=== PATIENT | female | born 1990 | race Caucasian/White ===

== ENCOUNTER 2016-08-02 12:14 | Emergency (ER) | payer OTHER ==
[~2016-08-02 12:14] MED LIST: ACET50TA PO; IBUP80TA PO; VITAPRTA PO
[2016-08-02 13:22] LABS: MEAN CORPUSCULAR HEMOGLOBIN 29.7 pg (27.0-33.0); MEAN CORPUSCULAR HGB CONC 33.7 g/dl (32.0-36.5); MEAN CORPUSCULAR VOLUME 88.1 fl (80.0-96.0); RED CELL DISTRIBUTION WIDTH 12.4 % (11.5-14.5); WHITE BLOOD COUNT 6.4 K/mm3 (4.0-10.0)
[2016-08-02 13:37] LABS: CONTROL LINE HCG INT CTR LINE PRESENT
[2016-08-02 13:52] LABS: ALBUMIN 3.6 GM/DL (3.2-5.2); ALBUMIN/GLOBULIN RATIO 1.03 (1.00-1.93); ALKALINE PHOSPHATASE 58 U/L (45-117); ALT/SGPT 35 U/L (12-78); ANION GAP 7 MEQ/L (8-16); AST/SGOT 32 U/L (15-37); BILIRUBIN,DIRECT 0.3 MG/DL (0.0-0.2); BILIRUBIN,TOTAL 1.6 MG/DL (0.2-1.0); BLOOD UREA NITROGEN 12 MG/DL (7-18); CALCIUM LEVEL 9.1 MG/DL (8.5-10.1); CARBON DIOXIDE LEVEL 26 MEQ/L (21-32); CHLORIDE LEVEL 108 MEQ/L (98-107); CREATININE FOR GFR 0.85 MG/DL (0.55-1.02); GLOMERULAR FILTRATION RATE > 60.0 (>60); GLUCOSE, FASTING 98 MG/DL (70-105); POTASSIUM SERUM 5.1 MEQ/L (3.5-5.1); SODIUM LEVEL 141 MEQ/L (136-145); TOTAL PROTEIN 7.1 GM/DL (6.4-8.2)
[2016-08-02] MEDS ORDERED: ACETAMINOPHEN 325 MG TAB As Ordered ONE (13:58)
[2016-08-02] MEDS ORDERED: ONDANSETRON 4MG/2ML VIAL (J2405) As Ordered ONE (14:30)
[2016-08-02 14:58] LABS: AMPHETAMINES LEVEL URINE NEGATIVE (NEGATIVE); BENZODIAZEPINES URINE NEGATIVE (NEGATIVE); COCAINE METABOLITE URINE NEGATIVE (NEGATIVE); CONTROL LINE INT CTR LINE PRESENT; METHADONE URINE NEGATIVE (NEGATIVE); OPIATES URINE NEGATIVE (NEGATIVE); TRICYCLIC ANTIDEPRESS URINE NEGATIVE (NEGATIVE)
--- NOTE | 2016-08-02 15:41 | EDDOCDS ---
Physician Documentation [facility] Name: Michelle Adamson Age: 25 yrs Sex: Female : 1990 Arrival Date: 08/02/2016 Time: 12:14 Bed 13 Private MD: Disposition: 08/02/16 15:08 Discharged to Home/Self Care. Impression: Concussion, Postconcussional syndrome. - Condition is Stable. - Discharge Instructions: General Headache Without Cause, Post-Concussion Syndrome. - Prescriptions for ZOFRAN ODT 4 mg - dissolve 1 tablet by ORAL route 4 times per day As needed do not chew, do not swallow whole; 10 tablet. - Medication Reconciliation, Local Pharmacy Hours form. - Follow up: Natasha Shen MD; When: 2 - 3 days. - Problem is new. - Symptoms have improved. - Notes: no sports x 4 wks. return if worsening symptoms. Historical: - Allergies: No known drug Allergies; - Home Meds: 1. levothyroxine 25 mcg oral tab once daily - PMHx: Hypothyroidism; - Social history: Smoking status: Patient states was never smoker of tobacco. No barriers to communication noted, The patient speaks fluent Ivorian, Speaks appropriately for age. - Family history: Not pertinent. - : The pt / caregiver states he / she is not on anticoagulants. Home medication list is obtained from [employer] import data. - Exposure Risk Screening:: None identified. 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 Verbal Response: oriented(5). Motor Response: obeys dy commands(6). Total: 14. MDM: 12:34 CT Head Without Contrast Ordered. EDMS 12:54 Consult PFS/PSA/Sewing Line Baler ordered. ml 12:54 PSA/PFS to call Nursing Patient Services Manager, to enter patient data on [place] Safe [place] if patient ml involuntarily admitted or transferred for SI or HI ordered. 12:54 Confirm accurate psychiatric medication list and times of last dosage ordered. ml 12:54 Detain Pt Until Medically/PFS Cleared ordered. ml 12:54 IV Saline Lock ordered. ml 12:55 Acetaminophen Level Ordered. EDMS 12:55 Basic Metabolic Profile Ordered. EDMS 12:55 Complete Blood Count Ordered. EDMS 12:55 Drug Eval Toxicology ED Only Ordered. EDMS 12:55 Ethyl Alcohol (ethanol) Ordered. EDMS 12:55 HCG,Serum Qualitative Ordered. EDMS 12:55 Liver Profile Ordered. EDMS 12:55 Salicylate Level Ordered. EDMS 12:55 Thyroid Stimulating Hormone Ordered. EDMS 13:29 Acetaminophen Tablet 650 mg PO once ordered. ml 14:05 Acetaminophen Level Reviewed. ml 14:05 Basic Metabolic Profile Reviewed. ml 14:05 Liver Profile Reviewed. ml 14:05 Salicylate Level Reviewed. ml 14:05 Complete Blood Count Reviewed. ml 14:05 Ethyl Alcohol (ethanol) Reviewed. ml 14:05 HCG,Serum Qualitative Reviewed. ml 14:05 Thyroid Stimulating Hormone Reviewed. ml 14:25 Ondansetron 4 mg IVP once ordered. ml 14:49 Financial registration complete. jls1 15:05 Drug Eval Toxicology ED Only Reviewed. ml 15:35 PSA/PFS to call Nursing Patient Services Manager, to enter patient data on [place] Safe [place] if patient kc3 involuntarily admitted or transferred for SI or HI complete. 15:35 Consult PFS/PSA/Sewing Line Baler complete. kc3 Administered Medications: 14:09 Drug: Acetaminophen 650 mg [acetaminophen 325 mg tablet (2 tabs)] Route: PO; kc3 14:37 Drug: Ondansetron 4 mg [ondansetron HCl 2 mg/mL intravenous solution (2 mL)] Route: kc3 IVP; Site: right hand; Signatures: Dispatcher [employer] Yenni Allen MD MD ml Youngs, David, RN Loli Fong [email or web address] Danitza Vaca,RYDER SOLER kc3 The chart was reviewed and I authenticate all verbal orders and agree with the evaluation and treatment provided.Corrections: (The following items were deleted from the chart) 14:41 12:27 Home Meds: Levothyroxine Oral once daily; dy kc3 MTDD
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
--- NOTE | 2016-08-04 16:41 | EDDOCDS ---
Physician Documentation [facility] Name: Michelle Adamson Age: 25 yrs Sex: Female : 1990 Arrival Date: 08/02/2016 Time: 12:14 Bed 13 Private MD: Disposition: 08/02/16 15:08 Discharged to Home/Self Care. Impression: Concussion, Postconcussional syndrome. - Condition is Stable. - Discharge Instructions: General Headache Without Cause, Post-Concussion Syndrome. - Prescriptions for ZOFRAN ODT 4 mg - dissolve 1 tablet by ORAL route 4 times per day As needed do not chew, do not swallow whole; 10 tablet. - Medication Reconciliation, Local Pharmacy Hours form. - Follow up: Natasha Shen MD; When: 2 - 3 days. - Problem is new. - Symptoms have improved. - Notes: no sports x 4 wks. return if worsening symptoms. Historical: - Allergies: No known drug Allergies; - Home Meds: 1. levothyroxine 25 mcg oral tab once daily - PMHx: Hypothyroidism; - Social history: Smoking status: Patient states was never smoker of tobacco. No barriers to communication noted, The patient speaks fluent Brazilian, Speaks appropriately for age. - Family history: Not pertinent. - : The pt / caregiver states he / she is not on anticoagulants. Home medication list is obtained from [employer] import data. - Exposure Risk Screening:: None identified. 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 Verbal Response: oriented(5). Motor Response: obeys dy commands(6). Total: 14. MDM: 12:34 CT Head Without Contrast Ordered. EDMS 12:54 Consult PFS/PSA/Agricultural Research Director ordered. ml 12:54 PSA/PFS to call Nursing Academic Hospitalist, to enter patient data on [place] if patient ml involuntarily admitted or transferred for SI or HI ordered. 12:54 Confirm accurate psychiatric medication list and times of last dosage ordered. ml 12:54 Detain Pt Until Medically/PFS Cleared ordered. ml 12:54 IV Saline Lock ordered. ml 12:55 Acetaminophen Level Ordered. EDMS 12:55 Basic Metabolic Profile Ordered. EDMS 12:55 Complete Blood Count Ordered. EDMS 12:55 Drug Eval Toxicology ED Only Ordered. EDMS 12:55 Ethyl Alcohol (ethanol) Ordered. EDMS 12:55 HCG,Serum Qualitative Ordered. EDMS 12:55 Liver Profile Ordered. EDMS 12:55 Salicylate Level Ordered. EDMS 12:55 Thyroid Stimulating Hormone Ordered. EDMS 13:29 Acetaminophen Tablet 650 mg PO once ordered. ml 14:05 Acetaminophen Level Reviewed. ml 14:05 Basic Metabolic Profile Reviewed. ml 14:05 Liver Profile Reviewed. ml 14:05 Salicylate Level Reviewed. ml 14:05 Complete Blood Count Reviewed. ml 14:05 Ethyl Alcohol (ethanol) Reviewed. ml 14:05 HCG,Serum Qualitative Reviewed. ml 14:05 Thyroid Stimulating Hormone Reviewed. ml 14:25 Ondansetron 4 mg IVP once ordered. ml 14:49 Financial registration complete. jls1 15:05 Drug Eval Toxicology ED Only Reviewed. ml 15:35 PSA/PFS to call Nursing Academic Hospitalist, to enter patient data [place] if patient kc3 involuntarily admitted or transferred for SI or HI complete. 15:35 Consult PFS/PSA/Agricultural Research Director complete. kc3 16:00 [facility] Payment Agreement was scanned into [employer] and attached to record. zo 17:21 T-Sheet-- Draft Copy was scanned into [employer] and attached to record. klr Administered Medications: 14:09 Drug: Acetaminophen 650 mg [acetaminophen 325 mg tablet (2 tabs)] Route: PO; kc3 14:37 Drug: Ondansetron 4 mg [ondansetron HCl 2 mg/mL intravenous solution (2 mL)] Route: kc3 IVP; Site: right hand; Signatures: Dispatcher [employer] EDYenni Zhu MD MD ml Youngs, David, Phylicia Roa RN, Jennifer jls1 Danitza Vaca RN RN kc3 Elizabeth Reveles The chart was reviewed and I authenticate all verbal orders and agree with the evaluation and treatment provided.Corrections: (The following items were deleted from the chart) 14:41 12:27 Home Meds: Levothyroxine Oral once daily; dy kc3 Attachments: 16:00 [facility] Payment Agreement zo 17:21 T-Sheet-- Draft Copy klr Chart Complete MTDD
--- NOTE | 2016-08-04 16:41 | EDDOCDS ---
Physician Documentation [facility] Name: Michelle Adamson Age: 25 yrs Sex: Female : 1990 Arrival Date: 08/02/2016 Time: 12:14 Bed 13 Private MD: Disposition: 08/02/16 15:08 Discharged to Home/Self Care. Impression: Concussion, Postconcussional syndrome. - Condition is Stable. - Discharge Instructions: General Headache Without Cause, Post-Concussion Syndrome. - Prescriptions for ZOFRAN ODT 4 mg - dissolve 1 tablet by ORAL route 4 times per day As needed do not chew, do not swallow whole; 10 tablet. - Medication Reconciliation, Local Pharmacy Hours form. - Follow up: Natasha Shen MD; When: 2 - 3 days. - Problem is new. - Symptoms have improved. - Notes: no sports x 4 wks. return if worsening symptoms. Historical: - Allergies: No known drug Allergies; - Home Meds: 1. levothyroxine 25 mcg oral tab once daily - PMHx: Hypothyroidism; - Social history: Smoking status: Patient states was never smoker of tobacco. No barriers to communication noted, The patient speaks fluent [place]ine[place], Speaks appropriately for age. - Family history: Not pertinent. - : The pt / caregiver states he / she is not on anticoagulants. Home medication list is obtained from [employer] import data. - Exposure Risk Screening:: None identified. 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 Verbal Response: oriented(5). Motor Response: obeys dy commands(6). Total: 14. MDM: 12:34 CT Head Without Contrast Ordered. EDMS 12:54 Consult PFS/PSA/Automobile Mechanic ordered. ml 12:54 PSA/PFS to call Nursing Surgical Appliance Fitter, to enter [place] data [place] if patient ml involuntarily admitted or transferred for SI or HI ordered. 12:54 Confirm accurate psychiatric medication list and times of last dosage ordered. ml 12:54 Detain Pt Until Medically/PFS Cleared ordered. ml 12:54 IV Saline Lock ordered. ml 12:55 Acetaminophen Level Ordered. EDMS 12:55 Basic Metabolic Profile Ordered. EDMS 12:55 Complete Blood Count Ordered. EDMS 12:55 Drug Eval Toxicology ED Only Ordered. EDMS 12:55 Ethyl Alcohol (ethanol) Ordered. EDMS 12:55 HCG,Serum Qualitative Ordered. EDMS 12:55 Liver Profile Ordered. EDMS 12:55 Salicylate Level Ordered. EDMS 12:55 Thyroid Stimulating Hormone Ordered. EDMS 13:29 Acetaminophen Tablet 650 mg PO once ordered. ml 14:05 Acetaminophen Level Reviewed. ml 14:05 Basic Metabolic Profile Reviewed. ml 14:05 Liver Profile Reviewed. ml 14:05 Salicylate Level Reviewed. ml 14:05 Complete Blood Count Reviewed. ml 14:05 Ethyl Alcohol (ethanol) Reviewed. ml 14:05 HCG,Serum Qualitative Reviewed. ml 14:05 Thyroid Stimulating Hormone Reviewed. ml 14:25 Ondansetron 4 mg IVP once ordered. ml 14:49 Financial registration complete. jls1 15:05 Drug Eval Toxicology ED Only Reviewed. ml 15:35 PSA/PFS to call Nursing Surgical Appliance Fitter, to enter [place] data [place] if patient kc3 involuntarily admitted or transferred for SI or HI complete. 15:35 Consult PFS/PSA/Automobile Mechanic complete. kc3 16:00 [facility] OF [facility] Payment Agreement was scanned into [employer] and attached to record. zo 17:21 T-Sheet-- Draft Copy was scanned into [employer] and attached to record. klr Administered Medications: 14:09 Drug: Acetaminophen 650 mg [acetaminophen 325 mg tablet (2 tabs)] Route: PO; kc3 14:37 Drug: Ondansetron 4 mg [ondansetron HCl 2 mg/mL intravenous solution (2 mL)] Route: kc3 IVP; Site: right hand; Signatures: Dispatcher [employer] EDYenni Zhu MD MD ml Youngs, David, Phylicia Roa RN, Jennifer jls1 Danitza Vaca RN RN kc3 Elizabeth Reveles The chart was reviewed and I authenticate all verbal orders and agree with the evaluation and treatment provided.Corrections: (The following items were deleted from the chart) 14:41 12:27 Home Meds: Levothyroxine Oral once daily; dy kc3 Attachments: 16:00 [facility] Payment Agreement zo 17:21 T-Sheet-- Draft Copy klr Chart Complete MTDD
== END 2016-08-02 15:40 | disposition home or self-care (01) ==
LOC: M ED 12:14
DX: S06.0X0A Concussion without loss of consciousness, initial encounter (principal); W50.0XXA Accidental hit or strike by another person, initial encounter; Y92.019 Unspecified place in single-family (private) house as the place of occurrence of the external cause; Y93.89 Activity, other specified; Y99.8 Other external cause status; E03.9 Hypothyroidism, unspecified; Z79.899 Other long term (current) drug therapy
CPT/HCPCS: 36415; 70450; 80048; 80076; 80306; 84443; 84703; 85027; 96374; 99284; G0480; J2405

== ENCOUNTER → 2016-09-15 | Outpatient (CLI) | payer OTHER ==
[2016-09-15 15:06] LABS: FREE T4 1.04 NG/DL (0.76-1.46)
== END ==
LOC: M SMT 11:43
PROVIDERS: ATTEND Family Medicine
DX: E03.9 Hypothyroidism, unspecified (principal)

== ENCOUNTER → 2016-10-20 | Outpatient (REF) | payer OTHER | LOC: M LAB REF 17:05 | PROVIDERS: ATTEND Family Medicine | DX: J02.9 Acute pharyngitis, unspecified (principal) ==

== ENCOUNTER 2016-11-12 18:34 | Emergency (ER) | payer OTHER ==
[~2016-11-12] VITALS: Ht 172.7 cm; Wt 59.0 kg
[2016-11-12] MEDS ORDERED: ORTHTAB6 PO (18:44)
[2016-11-12] MEDS ORDERED: ZOLO50TA PO (18:44)
[2016-11-12] MEDS ORDERED: LEVO25TA5 PO (18:44)
[2016-11-12] MEDS ORDERED: NAPROXEN 250 MG TAB PO ONE (21:30)
[2016-11-12] MEDS ORDERED: [UNRECOGNIZED DRUG - SUPPLY] (21:40)
[2016-11-12 22:01] VITALS: BP 129/79
--- NOTE | 2016-11-13 06:46 | REP ---
Clinical: Trauma. Technique: AP, lateral, bilateral oblique views right foot . Findings: The osseous structures and joint spaces are intact and normal. There is no evidence for acute fracture or dislocation. Surrounding soft tissues are unremarkable. No subcutaneous emphysema or radiodense foreign body. Impression: Normal examination. No acute fracture or dislocation. Signed by Ruben Martines MD 11/13/2016 06:38 A
== END 2016-11-12 22:02 | disposition home or self-care (01) ==
LOC: M ED 19:43
DX: S93.621A Sprain of tarsometatarsal ligament of right foot, initial encounter (principal); X58.XXXA Exposure to other specified factors, initial encounter; Y92.009 Unspecified place in unspecified non-institutional (private) residence as the place of occurrence of the external cause; Y93.89 Activity, other specified; Y99.8 Other external cause status; E03.9 Hypothyroidism, unspecified; Z79.899 Other long term (current) drug therapy

== ENCOUNTER → 2016-12-09 | Outpatient (REF) | payer OTHER ==
[~2016-12-09] MED LIST changes: +LEVO25TA5 PO; +ORTHTAB6 PO; +ZOLO50TA PO; +[UNRECOGNIZED DRUG - SUPPLY]
== END ==
LOC: M SMT 13:00
PROVIDERS: ATTEND Nurse Practitioner Women's Health
DX: N39.0 Urinary tract infection, site not specified (principal)

== ENCOUNTER → 2016-12-11 | Outpatient (CLI) | payer OTHER ==
--- NOTE | 2016-12-11 11:36 | REP ---
RENAL AND BLADDER ULTRASOUND: Real-time sonographic evaluation of the kidneys performed. The kidneys are normal in size and echotexture, right kidney measuring 10.2 x 5.6 x 3.6 cm and left kidney 11.1 x 6.0 x 4.2 cm. There is no evidence of hydronephrosis. No renal mass is seen. The urinary bladder measures 12.3 x 10.5 x 11.9 cm for a total volume of 804 mL. There is no mass or calculus. There are bilateral ureteral jets in the urinary bladder with Doppler color evaluation. There is mild post void residual of 31 mL. IMPRESSION: Essentially unremarkable renal and bladder ultrasound. Signed by Teto Gonsalez MD 12/11/2016 03:15 P
== END ==
LOC: M SMT 09:49
PROVIDERS: ATTEND Nurse Practitioner Women's Health
DX: N39.0 Urinary tract infection, site not specified (principal)

== ENCOUNTER → 2017-05-04 | Outpatient (CLI) | payer OTHER ==
[~2017-05-04] MED LIST changes: +ORTHTAB15 PO; -ORTHTAB6 PO
[2017-05-04 19:01] LABS: BASO % 0.4 % (0.0-1.0); EOS # 0.2 10^3/uL (0.0-0.50); EOS % 1.9 % (0.0-3.0); IMMATURE GRANULOCYTE % 0.3 % (0-0); LYMPH # 1.7 10^3/uL (1.5-6.5); LYMPH % 18.5 % (24.0-44.0); MEAN CORPUSCULAR HEMOGLOBIN 29.2 pg (27.0-33.0); MEAN CORPUSCULAR HGB CONC 31.3 g/dl (32.0-36.5); MEAN CORPUSCULAR VOLUME 93.5 fl (80.0-96.0); MONO # 0.6 10^3/uL (0.0-0.8); MONO % 6.9 % (0.0-5.0); NEUTROPHILS # 6.6 10^3/uL (1.8-7.7); PLATELET COUNT, AUTOMATED 228 10^3/uL (150-450); RED CELL DISTRIBUTION WIDTH 13.2 % (11.5-14.5); WHITE BLOOD COUNT 9.1 10^3/uL (4.0-10.0)
[2017-05-04 19:02] LABS: THYROID PEROXIDASE ANTIBODY < 28.0 U/ML (<60.0)
[2017-05-04 19:03] LABS: FOLATE 9.2 NG/ML; VITAMIN B12 LEVEL 758 PG/ML
[2017-05-04 19:04] LABS: FREE T4 1.04 NG/DL (0.76-1.46)
[2017-05-07 00:06] LABS: Lyme Disease IgG/IgM Antibodie <0.91 ISR (0.00-0.90); Lyme Disease IgM Ab Quantitati <0.80 index (0.00-0.79); SJOGREN'S ANTI SS-A <0.2 AI (0.0-0.9); SJOGREN'S ANTI SS-B <0.2 AI (0.0-0.9)
== END ==
LOC: M SMT 11:10
PROVIDERS: ATTEND Family Medicine
DX: R53.83 Other fatigue (principal)

== ENCOUNTER → 2017-07-01 | Outpatient (CLI) | payer OTHER ==
[2017-07-01 14:02] LABS: BASO % 0.8 % (0.0-1.0); EOS # 0.1 10^3/uL (0.0-0.50); EOS % 2.5 % (0.0-3.0); HEMATOCRIT 39.2 % (36.0-47.0); HEMOGLOBIN 12.8 g/dl (12.0-16.0); IMMATURE GRANULOCYTE % 0.2 % (0-0); LYMPH # 1.6 10^3/uL (1.5-6.5); LYMPH % 30.3 % (24.0-44.0); MEAN CORPUSCULAR HEMOGLOBIN 29.5 pg (27.0-33.0); MEAN CORPUSCULAR HGB CONC 32.7 g/dl (32.0-36.5); MEAN CORPUSCULAR VOLUME 90.3 fl (80.0-96.0); MONO # 0.5 10^3/uL (0.0-0.8); MONO % 8.9 % (0.0-5.0); NEUTROPHILS % 57.3 % (36.0-66.0); PLATELET COUNT, AUTOMATED 231 10^3/uL (150-450); RED BLOOD COUNT 4.34 10^6/uL (4.00-5.40); WHITE BLOOD COUNT 5.3 10^3/uL (4.0-10.0)
[2017-07-01 14:24] LABS: FOLATE 16.6 NG/ML; VITAMIN B12 LEVEL 1094 PG/ML
[2017-07-01 14:27] LABS: ALBUMIN 3.8 GM/DL (3.2-5.2); ALBUMIN/GLOBULIN RATIO 1.12 (1.00-1.93); ALKALINE PHOSPHATASE 67 U/L (45-117); ALT/SGPT 35 U/L (12-78); ANION GAP 6 MEQ/L (8-16); AST/SGOT 28 U/L (7-37); BILIRUBIN,TOTAL 0.9 MG/DL (0.2-1.0); BLOOD UREA NITROGEN 25 MG/DL (7-18); CARBON DIOXIDE LEVEL 27 MEQ/L (21-32); CHLORIDE LEVEL 107 MEQ/L (98-107); CREATININE FOR GFR 1.07 MG/DL (0.55-1.02); FERRITIN 23 NG/ML (8-252); GLOMERULAR FILTRATION RATE > 60.0 (>60); GLUCOSE, FASTING 82 MG/DL (70-105); MAGNESIUM LEVEL 2.3 MG/DL (1.8-2.4); SODIUM LEVEL 140 MEQ/L (136-145); TOTAL PROTEIN 7.2 GM/DL (6.4-8.2)
[2017-07-01 14:30] LABS: POTASSIUM SERUM 5.2 MEQ/L (3.5-5.1)
[2017-07-03 00:09] LABS: ANA (HEP2) Negative (.)
== END ==
LOC: M SMT 09:56
DX: D64.9 Anemia, unspecified (principal); R42 Dizziness and giddiness; R76.0 Raised antibody titer